=== PATIENT | male | born 1965 | race Caucasian/White ===

== ENCOUNTER → 2018-02-16 10:13 | Outpatient (CLI) | payer OTHER, SELFPAY ==
--- NOTE | 2018-02-16 13:15 | NEURO ---
NCS and/or EMG Patient Report Ordering Doctor: Jessica Pedro DATE OF SERVICE: 02/16/18 To Richardson is a 52-year-old male with chief complaint numbness and tingling in the right hand. Electrodiagnostic findings: Right median motor nerve demonstrates normal distal latency, amplitude and conduction velocity. Normal right ulnar motor response, including conduction across the elbow. Normal median and ulnar F waves. Prolonged right median sensory distal latency is noted. Normal ulnar and radial sensory responses. Needle EMG testing showed no evidence of denervation with normal motor unit action potentials. Electrodiagnostic impression: This is an abnormal study in the right upper limb. 1. Electrodiagnostic findings demonstrate right-sided median mononeuropathy. This is consistent with a mild right carpal tunnel syndrome. If there are any further questions, please do not hesitate to contact me.
== END ==
LOC: PSN 10:14
PROVIDERS: Visit Provider Orthopaedic Surgery
DX: G56.01 Carpal tunnel syndrome, right upper limb (principal); M65.4 Radial styloid tenosynovitis [de Quervain]
CPT/HCPCS: 95886; 95910